=== PATIENT | male | born 1985 | race Two or more races ===

== ENCOUNTER 2016-11-06 21:31 | Emergency (ER) | payer SELFPAY ==
[~2016-11-06] VITALS: Ht 185.4 cm; Wt 56.7 kg
[2016-11-06 21:59] VITALS: BP 130/93
== END 2016-11-07 00:01 | disposition left against medical advice (07) ==
LOC: ER 21:31
DX: Z53.21 Procedure and treatment not carried out due to patient leaving prior to being seen by health care provider (principal)
CPT/HCPCS: Z7610 ×2